=== PATIENT | male | born 1965 | race Caucasian/White ===

== ENCOUNTER 2024-07-09 17:38 | Emergency (ER) | payer BC ==
[~2024-07-09] VITALS: Ht 185.4 cm; Wt 126.5 kg
[2024-07-09 21:25] VITALS: BP 129/80; TEMP 96.3; O2SAT 96
[2024-07-09] MEDS ORDERED: CEPH500C PO (21:50)
[2024-07-09] MEDS: CEPHALEXIN 500 MG CAP PO ONE (21:53)
== END 2024-07-09 21:57 | disposition home or self-care (01) ==
LOC: M ED 17:38
DX: L03.116 Cellulitis of left lower limb (principal); I10 Essential (primary) hypertension; Z79.2 Long term (current) use of antibiotics